=== PATIENT | female | born 1990 | race Asian ===

== ENCOUNTER 2017-06-12 08:35 | Inpatient (IN) | payer SELFPAY ==
[~2017-06-12] VITALS: Ht 158 cm; Wt 54.0 kg
[2017-06-12] MEDS ORDERED: LACTATED RINGERS 1,000 ML IV SCH (08:51)
[2017-06-12] MEDS ORDERED: CITRIC ACID/SODIUM CITRATE 30 ML UDC PO SCH (08:55)
[2017-06-12] MEDS ORDERED: PREN-546 PO (08:58)
[2017-06-12 09:23] LABS: BASOPHILS # (AUTO) 0.2 K/uL (0.00-0.22); BASOPHILS % (AUTO) 1.8 % (0.0-2.0); EOSINOPHILS # (AUTO) 0.1 K/uL (0-0.4); EOSINOPHILS % (AUTO) 0.6 % (0.0-4.0); HEMATOCRIT 35.2 % (36-48); LYMPHOCYTES # (AUTO) 1.6 K/uL (2.5-16.5); LYMPHOCYTES % (AUTO) 18.1 % (20.5-51.1); MEAN CORPUSCULAR HEMOGLOBIN 33 pg (27-31); MEAN CORPUSCULAR HGB CONC 34 g/dL (33-37); MEAN CORPUSCULAR VOLUME 97 fL (80-94); MONOCYTES # (AUTO) 0.7 K/uL (0.8-1.0); MONOCYTES % (AUTO) 7.9 % (1.7-9.3); NEUTROPHILS # (AUTO) 6.4 K/uL (1.8-7.7); NEUTROPHILS % (AUTO) 71.6 % (42.2-75.2); PLATELET COUNT (AUTO) 202 K/uL (140-450); RED BLOOD CELL COUNT(AUTO) 3.62 MIL/uL (4.20-5.40); RED CELL DISTRIBUTION WIDTH 13.7 % (11.6-13.7)
[2017-06-12 09:28] VITALS: BP 108/68
[2017-06-12 09:39] LABS: ALBUMIN 2.6 g/dL (3.4-5.0); ANION GAP 15.6 (8-16); CARBON DIOXIDE 21.2 mmol/L (21-32); CREATININE 0.5 mg/dL (0.6-1.3); POTASSIUM 3.8 mmol/L (3.5-5.1); TOTAL BILIRUBIN 1.3 mg/dL (0.0-1.0)
[2017-06-12] MEDS ORDERED: MORPHINE PRES FREE 10 MG/10 ML AMP IV ONE (09:41)
[2017-06-12] MEDS ORDERED: BUPIVACAINE-MPF 0.75% 10 ML VIAL INJ ONE (09:45)
[2017-06-12 09:48] LABS: APPEARANCE,URINE TURBID (CLEAR); BILIRUBIN,URINE NEGATIVE (NEGATIVE); BLOOD, URINE NEGATIVE (NEGATIVE); COLOR,URINE YELLOW (YELLOW); LEUKOCYTE ESTERASE ,URINE NEGATIVE (NEGATIVE); NITRITE, URINE NEGATIVE (NEGATIVE); PH,URINE 6.5 (5.0-9.0); UGLUCOSE NEGATIVE (NEGATIVE)
[2017-06-12] MEDS ORDERED: TRIAMCINOLONE 40 MG/ML 5ML VIAL ONE (09:50)
[2017-06-12] MEDS ORDERED: OXYTOCIN 10 UNITS/ML VIAL ONE (09:52)
[2017-06-12] MEDS ORDERED: OXYTOCIN 20 UNITS in LACTATED RINGERS 1,000 ML IV SCH (09:53)
[2017-06-12] MEDS ORDERED: NALOXONE 0.4 MG/ML VIAL IVP PRN ×2 (09:55)
[2017-06-12] MEDS ORDERED: ONDANSETRON 4 MG/2 ML VIAL IVP PRN (09:55)
[2017-06-12] MEDS ORDERED: diphenhydrAMINE 50 MG/ML VIAL IVP PRN (09:55)
[2017-06-12] MEDS ORDERED: KETOROLAC 30 MG/ML VIAL IVP PRN (09:55)
[2017-06-12] MEDS ORDERED: LACTATED RINGERS 500 ML IV SCH (12:20)
[2017-06-12] MEDS ORDERED: OXYTOCIN 10 UNITS in LACTATED RINGERS 1,000 ML IV SCH (19:32)
[2017-06-12] MEDS ORDERED: HYDROcodone/APAP 5/325 MG 1 TAB TAB PO PRN (19:35)
[2017-06-12] MEDS ORDERED: IBUPROFEN 800 MG TAB PO PRN (19:35)
[2017-06-12] MEDS ORDERED: oxyCODONE/APAP 5/325 MG 1 TAB TAB PO PRN (19:35)
[2017-06-12] MEDS: OXYTOCIN 20 UNITS in LACTATED RINGERS 1,000 ML IV SCH (21:37)
[2017-06-13] MEDS ORDERED: OXYTOCIN 20 UNITS/LR PREMIX 1,000 ML IV ONE (02:51)
[2017-06-13] MEDS: OXYTOCIN 20 UNITS in LACTATED RINGERS 1,000 ML IV SCH (05:08)
--- NOTE | 2017-06-13 06:33 | NUR ---
PATIENT HAS BEEN SCREENED AND CATEGORIZED LOW NUTRITION RISK. PATIENT WILL BE SEEN WITHIN 7 DAYS OF ADMISSION. 06/18/17 LOC [facility]OTT MS, RDN
[2017-06-13 09:18] LABS: BASOPHILS # (AUTO) 0.1 K/uL (0.00-0.22); BASOPHILS % (AUTO) 0.7 % (0.0-2.0); EOSINOPHILS % (AUTO) 0.3 % (0.0-4.0); HEMATOCRIT 31.9 % (36-48); HEMOGLOBIN 10.7 g/dL (12.0-16.0); LYMPHOCYTES # (AUTO) 1.1 K/uL (2.5-16.5); LYMPHOCYTES % (AUTO) 7.4 % (20.5-51.1); MEAN CORPUSCULAR HEMOGLOBIN 33 pg (27-31); MEAN CORPUSCULAR HGB CONC 34 g/dL (33-37); MEAN CORPUSCULAR VOLUME 99 fL (80-94); MONOCYTES # (AUTO) 0.9 K/uL (0.8-1.0); MONOCYTES % (AUTO) 6.3 % (1.7-9.3); NEUTROPHILS # (AUTO) 12.7 K/uL (1.8-7.7); NEUTROPHILS % (AUTO) 85.3 % (42.2-75.2); PLATELET COUNT (AUTO) 194 K/uL (140-450); RED BLOOD CELL COUNT(AUTO) 3.22 MIL/uL (4.20-5.40); RED CELL DISTRIBUTION WIDTH 13.2 % (11.6-13.7); WHITE BLOOD COUNT (AUTO) 14.8 K/uL (4.8-10.8)
[2017-06-13] MEDS ORDERED: OXYTOCIN 20 UNITS in LACTATED RINGERS 1,000 ML IV SCH (19:32)
[2017-06-14] MEDS ORDERED: INFLUENZA VIRUS VACCINE QUAD 0.5 ML SYR IMVAC SCH (18:20)
== END 2017-06-15 15:00 | disposition home or self-care (01) | DRG 766 ==
LOC: MLD 08:35 → MFCC 09:45
PROVIDERS: ADMIT Obstetrics & Gynecology; ATTEND Obstetrics & Gynecology
PROC: 10D00Z1 Extraction of Products of Conception, Low, Open Approach (ICD-10-PCS; principal; 2017-06-12 10:00)
PROC: 3E0234Z Introduction of Serum, Toxoid and Vaccine into Muscle, Percutaneous Approach (ICD-10-PCS; 2017-06-14)
PROC: 3E0234Z Introduction of Serum, Toxoid and Vaccine into Muscle, Percutaneous Approach (ICD-10-PCS; 2017-06-14)
DX: O34.211 Maternal care for low transverse scar from previous cesarean delivery (principal); O32.1XX0 Maternal care for breech presentation, not applicable or unspecified; O69.1XX0 Labor and delivery complicated by cord around neck, with compression, not applicable or unspecified; O34.00 Maternal care for unspecified congenital malformation of uterus, unspecified trimester; Z37.0 Single live birth; Z3A.39 39 weeks gestation of pregnancy; Z23 Encounter for immunization; Q51.3 Bicornate uterus
CPT/HCPCS: 36415; 80053; 81003; 85025; 86592; 86886; 86900; 86901; 90658; 90715; J0690; J2270; J2590; J3301; J3490; J7060; J7120